=== PATIENT | male | born 1960 | race Caucasian/White ===

== ENCOUNTER 2024-10-17 10:24 | Outpatient (OUT) | payer OTHER, SELFPAY ==
--- OUTSIDE RECORDS SUMMARY | 2024-10-09 23:59 | XMS_ITS | Continuity of Care Document ---
Author Organization [facility] Address [address] [place] [address] Care Team Providers Care Glass Bulb Silverer Name Role Phone ISAIAS ESPOSITO Primary Care Physician Unav ailable Encounter [id number] [id number] Date(s): 10/09/24 - 10/09/24 [facility] [address] [place] [address]- Encounter Diagnosis Elevated PSA(Discharge Diagnosis) - 10/09/24 BPH without urinary obstruction(Discharge Diagnosis) - 10/09/24 Discharge Disposition: Home (Routine DC) Attending Physician: Vlad MALDONADO MD Encounter Type: Clinic Allergies, Adverse Reactions, Alerts Substance Criticality Severity Reaction Reaction Severity Status penicillin High criticality Moderate Ac tive Assessment and Plan Diagnostic Tests Pending * PSA Total 10/09/24 Immunizations Given and Recorded Vaccine Date Status Refusal Reason SARS-CoV-2 (COVID-19) mRNA-1273 vaccine 05/13/21 R ecorded SARS-CoV-2 (COVID-19) mRNA-1273 vaccine 06/27/20 R ecorded SARS-CoV-2 (COVID-19) mRNA-1273 vaccine 05/30/20 R ecorded diphtheria/pertussis, acel/tetanus adult 08/30/17 Recorded influenza virus vaccine, inactivated 05/17/15 Romeo rded influenza, whole 01/16/11 Recorded Medications amLODIPine 5 mg Tab 5 mg = 1 tab(s), Refills(s) 0 Start Date: 10/09/24 Status: Ordered Repeat number: 1 atorvastatin 20 mg Tab 20 mg = 1 tab(s), Refills(s) 0 Start Date: 10/09/24 Status: Ordered Repeat number: 1 Cipro 500 mg Tab 500 mg = 1 tab(s), Oral, BID, start 3 days prior to procedure, X 7 day(s), # 14 tab(s), Refills(s) 0, Pharmacy: [id number], 170, cm, 10/09/24 14:12:00 EDT, Height/Length Dosing, 80.5, kg, 10/09/24 14:12:00 EDT, Weight Dosing Start Date: 10/09/24 Stop Date: 10/16/24 Status: Ordered Quantity: 14.0 Unit: tab(s) Repeat number: 1 hydrochlorothiazide 25 mg Tab 25 mg = 1 tab(s), Refills(s) 0 Start Date: 10/09/24 Status: Ordered Repeat number: 1 lisinopril 40 mg Tab 40 mg = 1 tab(s), Refills(s) 0 Start Date: 10/09/24 Status: Ordered Repeat number: 1 omeprazole 20 mg Cap-DR 20 mg = 1 cap(s), Refills(s) 0 Start Date: 10/09/24 Status: Ordered Repeat number: 1 Problem List Condition Confirmation Course Effective Dates Status Health Status Informant BPH without urinary obstruction Confirmed Active Essential hypertension Confirmed 08/22/20 Active Gastroesophageal reflux disease without esophagitis Confirmed 04/23/21 Active Hypercholesterolemia Confirmed 08/22/20 Active Hypercholesterolemia Confirmed Active Hypertension Confirmed Active Prostate specific antigen above reference range Confirmed 09/14/24 Active Elevated PSA Confirmed Active Social History Social History Type Response Smoking Status Former smoker, quit more than 30 days ago;Former smokeless tobacco user, quit more than 30 days ago; Started at age: 50.0; Stopped at age: 60; entered on: 10/09/24 Sex Male Sex Representation Male (finding) Hospital Discharge Instructions Patient Education 10/09/2024 15:08:20 Transrectal Ultrasound-Guided Prostate Biopsy Transrectal Ultrasound-Guided Prostate Biopsy A transrectal ultrasound-guided prostate biopsy is a procedure to remove samples of prostate tissuefor testing. The prostate is a walnut-sized gland that is located below the bladder and in front ofthe rectum. During this procedure, a small device (probe) is lubricated and put inside the rectum. The probe sends out sound waves that make a picture of the prostate and surrounding tissues (transrectal ultrasound). The images are used to help guide the process of removing the samples. The samplesare taken to a lab to be checked for prostate cancer. This procedure is usually done to evaluate the prostate gland of men who have raised (elevated) levels of prostate-specific antigen (PSA), which can be a sign of prostate cancer or prostate enlargement related to aging (benign prostatic hyperplasia, or BPH). Tell a health care provider about: ??? Any allergies you have. ??? All medicines you are taking, including vitamins, herbs, eye drops, creams, and xskv-jxr-rbwhrhz medicines. ??? Any problems you or family members have had with anesthetic medicines. ??? Any bleeding problems you have. ??? Any surgeries you have had. ??? Any medical conditions you have. ??? Any prostate infections you have had. What are the risks? Generally, this is a safe procedure. However, problems may occur, including: ??? Prostate infection. ??? Bleeding from the rectum. ??? Blood in the urine. ??? Allergic reactions to medicines. ??? Damage to surrounding structures such as blood vessels, organs, or muscles. ??? Difficulty passing urine. ??? Nerve damage. This is usually temporary. What happens before the procedure? Medicines Ask your health care provider about: ??? Changing or stopping your regular medicines. This is especially important if you are taking diabetes medicines or blood thinners. ??? Taking medicines such as aspirin and ibuprofen. These medicines can thin your blood. Do not take these medicines unless your health care provider tells you to take them. ??? Taking jpvt-qqe-hvmpuoo medicines, vitamins, herbs, and supplements. General instructions ??? Follow instructions from your health care provider about eating and drinking. In most instances, you will not need to stop eating and drinking completely before the procedure. ??? You will be given an enema. During an enema, a liquid is injected into your rectum to clear outwaste. ??? You may have a blood or urine sample taken. ??? Ask your health care provider what steps will be taken to help prevent infection. These steps may include: ??? Washing skin with a germ-killing soap. ??? Taking antibiotic medicine. ??? If you will be going home right after the procedure, plan to have a responsible adult: ??? Take you home from the hospital or clinic. You will not be allowed to drive. ??? Care for you for the time you are told. What happens during the procedure? An IV will be inserted into one of your veins. ??? You will be given one or both of the following: ??? A medicine to help you relax (sedative). ??? A medicine to numb the area (local anesthetic). ??? You will be placed on your left side, and your knees will be bent toward your chest. ??? A probe with lubricated gel will be placed into your rectum, and images will be taken of your prostate and surrounding structures. ??? Numbing medicine will be injected into your prostate. ??? A biopsy needle will be inserted through your rectum or perineum and guided to your prostate using the ultrasound images. ??? Prostate tissue samples will be removed, and the needle and probe will then be removed. ??? The biopsy samples will be sent to a lab to be tested. The procedure may vary among health care providers and hospitals. What happens after the procedure? Your blood pressure, heart rate, breathing rate, and blood oxygen level will be monitored untilyou leave the hospital or clinic. ??? You may have some discomfort in the rectal area. You will be given pain medicine as needed. ??? If you were given a sedative during the procedure, it can affect you for several hours. Do not drive or operate machinery until your health care provider says that it is safe. ??? It is up to you to get the results of your procedure. Ask your health care provider, or the department that is doing the procedure, when your results will be ready. ??? Keep all follow-up visits. This is important. Summary ??? A transrectal ultrasound-guided biopsy removes samples of tissue from your prostate using ultrasound-guided sound waves to help guide the process. ??? This procedure is usually done to evaluate the prostate gland of men who have raised (elevated)levels of prostate-specific antigen (PSA), which can be a sign of prostate cancer or prostate enlargement related to aging. ??? After your procedure, you may feel some discomfort in the rectal area. ??? Plan to have a responsible adult take you home from the hospital or clinic, and follow up with your health care provider for your results. This information is not intended to replace advice given to you by your health care provider. Make sure you discuss any questions you have with your health care provider. Document Revised: 08/18/2021 Document Reviewed: 08/18/2021 [employer] Patient Education ?? 2023 [employer] 10/09/2024 15:00:33 Prostate Cancer Screening Prostate Cancer Screening Prostate cancer screening is testing that is done to check for the presence of prostate cancer in men. The prostate gland is a walnut-sized gland that is located below the bladder and in front of therectum in males. The function of the prostate is to add fluid to semen during ejaculation. Prostatecancer is one of the most common types of cancer in men. Who should have prostate cancer screening? Screening recommendations vary based on age and other risk factors, as well as between the professional organizations who make the recommendations. In general, screening is recommended if: ??? You are age 50 to 70 and have an average risk for prostate cancer. You should talk with your health care provider about your need for screening and how often screening should be done. Because most prostate cancers are slow growing and will not cause , screening in this age group is generally reserved for men who have a 10- to 15-year life expectancy. ??? You are younger than age 50, and you have these risk factors: ??? Having a father, brother, or uncle who has been diagnosed with prostate cancer. The risk is higher if your family member's cancer occurred at an early age or if you have multiple family members with prostate cancer at an early age. ??? Being a male who is Black or is of Isai or sub-Saharan descent. In general, screening is not recommended if: ??? You are younger than age 40. ??? You are between the ages of 40 and 49 and you have no risk factors. ??? You are 70 years of age or older. At this age, the risks that screening can cause are greater than the benefits that it may provide. If you are at high risk for prostate cancer, your health care provider may recommend that you have screenings more often or that you start screening at a younger age. How is screening for prostate cancer done? The recommended prostate cancer screening test is a blood test called the prostate-specific antigen(PSA) test. PSA is a protein that is made in the prostate. As you age, your prostate naturally produces more PSA. Abnormally high PSA levels may be caused by: ??? Prostate cancer. ??? An enlarged prostate that is not caused by cancer (benign prostatic hyperplasia, or BPH). This condition is very common in older men. ??? A prostate gland infection (prostatitis) or urinary tract infection. ??? Certain medicines such as male hormones (like testosterone) or other medicines that raise testosterone levels. A rectal exam may be done as part of prostate cancer screening to help provide information about the size of your prostate gland. When a rectal exam is performed, it should be done after the PSA level is drawn to avoid any effect on the results. Depending on the PSA results, you may need more tests, such as: ??? A physical exam to check the size of your prostate gland, if not done as part of screening. ??? Blood and imaging tests. ??? A procedure to remove tissue samples from your prostate gland for testing (biopsy). This is theonly way to know for certain if you have prostate cancer. What are the benefits of prostate cancer screening? Screening can help to identify cancer at an early stage, before symptoms start and when the cancer can be treated more easily. ??? There is a small chance that screening may lower your risk of dying from prostate cancer. The chance is small because prostate cancer is a slow-growing cancer, and most men with prostate cancer from a different cause. What are the risks of prostate cancer screening? The main risk of prostate cancer screening is diagnosing and treating prostate cancer that would never have caused any symptoms or problems. This is called overdiagnosisand overtreatment. PSA screening cannot tell you if your PSA is high due to cancer or a different cause. A prostate biopsy is the only procedure to diagnose prostate cancer. Even the results of a biopsy may not tell you if your cancer needs to be treated. Slow-growing prostate cancer may not need any treatment other than monitoring, so diagnosing and treating it may cause unnecessary stress or other side effects. Questions to ask your health care provider ??? When should I start prostate cancer screening? What is my risk for prostate cancer? How often do I need screening? What type of screening tests do I need? How do I get my test results? What do my results mean? Do I need treatment? Where to find more information ??? The [place] [employer]: www.cancer.org ??? [place] [employer] Association: www.auanet.org Contact a health care provider if: ??? You have difficulty urinating. ??? You have pain when you urinate or ejaculate. ??? You have blood in your urine or semen. ??? You have pain in your back or in the area of your prostate. Summary ??? Prostate cancer is a common type of cancer in men. The prostate gland is located below the bladder and in front of the rectum. This gland adds fluid to semen during ejaculation. ??? Prostate cancer screening may identify cancer at an early stage, when the cancer can be treatedmore easily and is less likely to have spread to other areas of the body. ??? The prostate-specific antigen (PSA) test is the recommended screening test for prostate cancer,but it has associated risks. ??? Discuss the risks and benefits of prostate cancer screening with your health care provider. If you are age 70 or older, the risks that screening can cause are greater than the benefits that it may provide. This information is not intended to replace advice given to you by your health care provider. Make sure you discuss any questions you have with your health care provider. Document Revised: 08/18/2021 Document Reviewed: 08/18/2021 [employer] Patient Education ?? 2023 [employer] Follow Up Care 09/19/2024 10:27:13 With:ERICA VICENTE, Vlad R, URL Address: [facility] [address] , [place] [address]- [phone] When: Unknown Comments:sched TRUS/bx Patient Care team information Care Team Personnel Name: ISAIAS ESPOSITO CNP Member Role: Primary Care Physician Address: [address] [address] Care Team Related Persons Name: TWIN GARRETT Insurance Providers Guarantor name: Health Plan Information #: 1 Payer: NA Payer Identifier: [id number] Member Number: [id number] Group Number: [id number] Subscriber Identifier: [id number] Relationship to Subscriber: Self Coverage Type: PRIVATE HEALTH INSURANCE Coverage Verification Date: 24 Telecom: LUL Address: NA
--- OUTSIDE RECORDS SUMMARY | 2024-10-09 23:59 | XMS_ITS | Continuity of Care Document ---
Author Organization [facility] Address Unknown Care Team Providers Care Underwriter Name Role Phone ISAIAS ESPOSITO Primary Care Physician Unav ailable Encounter [id number] [id number] Date(s): 10/09/24 - 10/09/[address] [address] Discharge Disposition: Home (Routine DC) Attending Physician: Vlad MALDONADO MD Admitting Physician: Vlad MALDONADO MD Encounter Type: Lab Drop off Allergies, Adverse Reactions, Alerts Substance Criticality Severity [...] day(s), # 14 tab(s), Refills(s) 0, Pharmacy: [id number], 170, cm, 10/09/24 14:12:00 EDT, [...] 10/09/24 Sex Male Sex Representation Male (finding) Patient Care team information Care Team Personnel Name: ISAIAS ESPOSITO CNP Member Role: Primary Care Physician Address: [address] Care Team Related Persons Name: TWIN GARRETT Insurance Providers Guarantor name: Health Plan Information #: 1 Payer: NA Payer Identifier: [id number] Member Number: [id number] Group Number: [id number] Subscriber Identifier: [id number] Relationship to Subscriber: Self Coverage Type: PRIVATE HEALTH INSURANCE Coverage Verification Date: NA Telecom: NA Address:
--- OUTSIDE RECORDS SUMMARY | 2024-10-17 10:26 | XMS_ITS | Encounter Summary ---
Author Organization [facility] tem Address [id number] [address] [place] [address] Care Team Providers Care Senior Test Engineer Name Role Phone Natalie Lopez WORK COUNSELOR-GENERAL PEDIATRICIAN Primary Care Provi edwin Encounter Details Date Type Department Care Team (Late st Contact Info) Description 09/03/2020 Telephone [facility] [address] [place] [address] [place] [address] Duke Kohler CMA Social History Tobacco Use Types Packs/Day Years Used Date Smoking Tobacco: Never Smokeless Tobacco: Former Snuff Alcohol Use Standard Drinks/Week Comments Yes 0 (1 standard drink = 0.6 oz pur e alcohol) occasional PHQ-2 Answer Date Recorded Total Score 0 07/22/2020 Childcare Answer Date Recorded Childcare Unknown 08/08/2018 Employment Answer Date Recorded Employment Unknown 08/08/2018 Purpose - Life Answer Date Recorded Purpose and direction in life Unknown Sex and Gender Information Value Date Recorded Sex Assigned at Not on file Legal Sex Male 12:00 PM EDT Gender Identity Not on file Sexual Orientation Not on file COVID-19 Exposure Response Date Recorded In the last month, have you been in contact with someone who was confirmed or suspected to have Coronavirus / COVID-19? No / Unsure 08/22/2020 3:24 PM EDT documented as of this encounter Miscellaneous Notes * Telephone Encounter - Duke Hannah CMA - 09/03/2020 10:41 AM EDT Jason called to express his gratitude to both of you for being so wonderful and helping him and Carley yesterday. He wanted me to thank both of you for him. documented in this encounter Plan of Treatment Upcoming Encounters Date Type Department Care Team (Late st Contact Info) Description 10/18/2024 2:40 PM EDT Office Visit [facility] [address] [place] [phone] Natalie Lopez, GHADA-GENERAL PEDIATRICIAN [address] [facility] [address], [place] [address] documented as of this encounter Visit Diagnoses Not on filedocumented in this encounter Additional Health Concerns Assessment Noted Time PHQ-9 Depression Total Score: 0 07/23/19 9:48 AM EDT documented as of this encounter Care Teams Senior Test Engineer Relationship Specialty Start Date End Date Natalie Lopez, WORK COUNSELOR-GENERAL PEDIATRICIAN [address] [facility] [address], [place] [address] PCP - General Family Medicine 07/22/20 documented as of this encounter
--- OUTSIDE RECORDS SUMMARY | 2024-10-17 10:26 | XMS_ITS | Encounter Summary ---
Author Organization [facility] tem Address [id number] [address] [place] [address] Care Team Providers Care Director Of Financial Reporting Name Role Phone Natalie Lopez HORSE TREKKING GUIDE-APPLICATION INTEGRATION ARCHITECT Primary Care Provi edwin Encounter Details Date Type Department Care Team (Latest Contact Info) Description 09/14/2024 Results Follow-Up [facility] [address] [place] [address] [place] [address] Suzi Reid CMA CBC auto differential, Comprehensive metabolic panel, Prostatic specific antigen screen, Additional followed-up results: 2 Social History Tobacco Use Types Packs/Day Years Used Date Smoking Tobacco: Never Smokeless Tobacco: Current Snuff Alcohol Use Standard Drinks/Week Comments Yes 0 (1 standard drink = 0.6 oz pur e alcohol) occasional PHQ-2 Answer Date Recorded Total Score 0 09/11/2024 Childcare Answer Date Recorded Childcare Unknown 08/08/2018 Employment Answer Date Recorded Employment Unknown 08/08/2018 Hunger Screening Answer Date Recorded Within the past 12 months we worried whether our food would run out before we got money to buy more. Never True 09/11/2024 Within the past 12 months th e food we bought just didn't last and we didn't have money to get more. Never True 09/11/2024 Purpose - Life Answer Date Recorded Purpose and direction in life Unknown Sex and Gender Information Value Date Recorded Sex Assigned at Not on file Legal Sex Male 12:00 PM EDT Gender Identity Not on file Sexual Orientation Not on file documented as of this encounter Miscellaneous Notes * Telephone Encounter - Suzi Reid CMA - 09/14/2024 12:44 PM EDT ----- Message from HEATHER Freeman sent at 09/12/2024 6:40 PM EDT ----- Psa quite high, needs to see urology. Ask if ok with putting in referral. Also b 12 low recommend b12 2500 mcg sl daily ----- Message ----- From: Lab, Background User Sent: 09/11/2024 6:07 PM EDT To: HEATHER Vitale * Telephone Encounter - Suzi Reid CMA - 09/14/2024 12:44 PM EDT Called and informed patient of results. Verbalized understanding with patient. Patient is wantign referral placed to urology. documented in this encounter Plan of Treatment Upcoming Encounters Date Type Department Care Team (Late st Contact Info) Description 10/18/2024 2:40 PM EDT Office Visit [facility] [address] [place] [phone] Natalie Lopez APRN-CNP [address] [facility] [address], [place], [place] [id number] documented as of this encounter Visit Diagnoses Not on filedocumented in this encounter Additional Health Concerns Assessment Noted Time PHQ-9 Depression Total Score: 0 09/12/19 25 3:04 PM EDT A Body Mass Index follow-up plan has been documented for the patient 09/11/2024 3:38 PM EDT documented as of this encounter Care Teams Director Of Financial Reporting Relationship Specialty Start Date End Date Natalie Lopez APRN-CNP [address], [place] [address] PCP - General Family Medicine 07/22/20 documented as of this encounter
--- OUTSIDE RECORDS SUMMARY | 2024-10-17 10:26 | XMS_ITS | Encounter Summary ---
Author Organization [employer] tem Address [id number] [address] [place] [address] Care Team Providers Care Grief Counsellor Name Role Phone Natalie Lopez TELESALES AGENT[facility] Primary Care Provi edwin Encounter Details Date Type Department Care Team (Late Contact Info) Description 10/12/2024 Orders Only [facility] [address] [place] [address] External, Scanning Provider Social History Tobacco Use Types Packs/Day Years [...] on file documented as of this encounter Plan of Treatment Upcoming Encounters Date Type Department Care Team (Late Contact Info) Description 10/18/2024 2:40 PM EDT Office Visit [facility] [address] [place] [address] [place] [address] Natalie Lopez, GHADA-CUSTOMER ACCOUNT TECHNICIAN [address], [place] [address] documented as of this encounter Procedures Procedure Name Priority Date/Time Associated Diagnosis Comments CO PSA, TOTAL SCREENING Routine 10/09/2024 documented in this encounter Results * (ABNORMAL) CO PSA, TOTAL SCREENING (10/09/2024) Psa 12.0(A) 0.1 - 3.5 MANUALLY TRANSCRIBED RESULTS Comment:Ordering provider: Jesus Elliott MD 10/09/2024 us Scanning Provider External CO PROFESSIONAL SERVI JAMES Edited Result - Final MANUALLY TRANSCRIBED RESULTS documented in this encounter Visit Diagnoses Not on filedocumented in this encounter Additional Health Concerns Assessment Noted Time PHQ-9 Depression Total Score: 0 09/12/19 25 3:04 PM EDT A Body Mass Index follow-up plan has been documented for the patient 09/11/2024 3:38 PM EDT documented as of this encounter Care Teams Grief Counsellor Relationship Specialty Start Date End Date Natalie Lopez, GHADA-NOLAN [address] [place] [address] PCP - General Family Medicine 07/22/20 documented as of this encounter
--- OUTSIDE RECORDS SUMMARY | 2024-10-17 10:26 | XMS_ITS | Encounter Summary ---
Author Organization [employer] [facility] tem Address [id number] [address] [place] [address] Care Team Providers Care Institutional Research Director Name Role Phone Natalie Lopez PAID SEARCH MARKETING ANALYST-PEDIATRIC AUDIOLOGIST Primary Care [facility] Encounter Details Date Type Department Care Team (Late st Contact Info) Description 07/29/2020 [facility] [address] [place] [address] [address] [place] [address] Duke Kohler CMA Social History Tobacco Use Types Packs/Day Years Used Date Smoking Tobacco: Never Smokeless Tobacco: Former Snuff Alcohol Use Standard Drinks/Week Comments Yes 0 (1 standard drink = 0.6 oz pur e alcohol) PHQ-2 Answer Date Recorded Total Score 0 [...] have Coronavirus / COVID-19? No / Unsure 07/22/2020 9:27 AM EDT documented as of this encounter Miscellaneous Notes * Telephone Encounter - Duke Hannah CMA - 07/29/2020 11:14 AM EDT Pt called and said when he saw you last, you mentioned there was a shoe place in [place] going out of business but they still measure feet. I forgot what the name of the place was, do you recall? * Telephone Encounter - HEATHER Wong - 07/29/2020 11:14 AM EDT [employer] [facility] on the [facility]. * Telephone Encounter - Duke Hannah CMA - 07/29/2020 11:14 AM EDT Informed pt, he verbalized understanding. documented in this encounter Plan of Treatment Upcoming Encounters Date Type Department Care Team (Late st Contact Info) Description 10/18/2024 2:40 PM EDT Office Visit [facility] [address] [place] [place] [phone] Natalie Lopez APRN-CNP [address], [place], [place] [phone] documented as of this encounter Visit Diagnoses Not on filedocumented in this encounter Additional Health Concerns Assessment Noted Time PHQ-9 Depression Total Score: 0 07/23/19 9:48 AM EDT documented as of this encounter Care Teams Institutional Research Director Relationship Specialty Start Date End Date Natalie Lopez APRN-CNP [address], [place] [address] PCP - General Family Medicine 07/22/20 documented as of this encounter
--- OUTSIDE RECORDS SUMMARY | 2024-10-17 10:26 | XMS_ITS | Encounter Summary ---
Author Organization [facility] [employer] tem Address [id number] [address] [place] [address] Care Team Providers Care Financial Business Analyst Name Role Phone Natalie Lopez ELECTRONICS TECHNOLOGY DEPARTMENT CHAIR-SAMPLE PATTERNMAKER Primary Care [facility] Encounter Details Date Type Department Care Team (Late st Contact Info) Description 07/21/2021 Refill [facility] [address] [place] [address] [address] [address] [place] [address] Megan Boss CMA Gastroesophageal reflux disease without esophagitis Social History Tobacco Use Types Packs/Day Years Used Date Smoking Tobacco: Never Smokeless Tobacco: Current Snuff Alcohol Use Standard Drinks/Week Comments Yes 0 (1 standard drink = 0.6 oz pur e alcohol) occasional PHQ-2 Answer Date Recorded Total Score 0 06/04/2021 Childcare Answer Date Recorded Childcare Unknown 08/08/2018 [...] encounter Miscellaneous Notes * Telephone Encounter - Megan Boss CMA - 07/21/2021 11:47 AM EDT Patient called stating he needs a refill on medication. He hasn't been taking it and has felt horrible. Would like to start it again. Please advise. documented in this encounter Plan of Treatment Upcoming Encounters Date Type Department Care Team (Late st Contact Info) Description 10/18/2024 2:40 PM EDT Office Visit [facility] [address] [place] [phone] Natalie Lopez APRN-CNP [address] [facility] [address], [place], [place] [phone] documented as of this encounter Visit Diagnoses Diagnosis Gastroesophageal reflux disease without esophagitis Esophageal reflux documented in this encounter Additional Health Concerns Assessment Noted Time PHQ-9 Depression Total Score: 0 06/05/19 22 3:19 PM EDT documented as of this encounter Care Teams Financial Business Analyst Relationship Specialty Start Date End Date Natalie Lopez APRN-CNP [address] [facility] [address], [place], [place] [phone] PCP - General Family Medicine 07/22/20 documented as of this encounter
--- OUTSIDE RECORDS SUMMARY | 2024-10-17 10:26 | XMS_ITS | Encounter Summary ---
Author Organization [facility] [employer] tem Address [id number] [address] [place] [address] Care Team Providers Care Underwriting Service Representative Name Role Phone Natalie Lopez INVESTMENT BANKING MANAGER-SALES SERVICE ROUTE MANAGER Primary Care [facility] Reason for Visit * Reason Comments Med Refill Encounter Details Date Type Department Care Team (Late st Contact Info) Description 10/12/2024 Refill [facility] [address] [place] [address] [place] [address] Aixa Hatch MD [address], [place] [address] Gastroesophageal reflux disease without esophagitis Social History [...] Office Visit [facility] [address] [place] [phone] Natalie Lopez APRN-CNP [address] [facility], [place] [address] documented as of this encounter Visit Diagnoses Diagnosis Gastroesophageal reflux disease without esophagitis Esophageal reflux documented in this encounter Additional Health Concerns Assessment Noted Time PHQ-9 Depression Total Score: 0 09/12/19 25 3:04 PM EDT A Body Mass Index follow-up plan has been documented for the patient 09/11/2024 3:38 PM EDT documented as of this encounter Care Teams Underwriting Service Representative Relationship Specialty Start Date End Date Natalie Lopez APRN-CNP [address], [place] [address] PCP - General Family Medicine 07/22/20 documented as of this encounter
--- OUTSIDE RECORDS SUMMARY | 2024-10-17 10:26 | XMS_ITS | Encounter Summary ---
Author Organization [facility] [employer] tem Address [id number] [address] [place] [address] Care Team Providers Care Carton Waxing Machine Operator Name Role Phone Natalie Lopez FEATHER TRIMMER-CANDY MAKER HELPER Primary Care [facility] Reason for Visit * Reason Comments Med Refill Encounter Details Date Type Department Care Team (Late st Contact Info) Description 09/30/2022 Refill [facility] [address] [facility] [place] [address] Aixa Hatch MD [address], [place] [address] Essential hypertension Social History Tobacco Use Types Packs/Day Years [...] got money to buy more. Never True 07/08/2022 Within the past 12 months th e food we bought just didn't last and we didn't have money to get more. Never True 07/08/2022 Purpose - Life Answer Date Recorded Purpose [...] Visit [facility] [address] [place] [phone] Natalie Lopez APRN-CNP [address] [facility] [address], [place], [place] [phone] documented as of this encounter Visit Diagnoses Diagnosis Essential hypertension Unspecified essential hypertension documented in this encounter Additional Health Concerns Assessment Noted Time PHQ-9 Depression Total Score: 0 06/05/19 22 3:19 PM EDT documented as of this encounter Care Teams Carton Waxing Machine Operator Relationship Specialty Start Date End Date Natalie Lopez, HEATHER [address] [facility] [address], [place], [place] [phone] PCP - General Family Medicine 07/22/20 documented as of this encounter
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
--- OUTSIDE RECORDS SUMMARY | 2024-10-17 10:26 | XMS_ITS | Encounter Summary ---
Author Organization [employer] s tem Address [id number] [address] [place] [address] Care Team Providers Care Data Visualization Developer Name Role Phone Natalie Lopez BULWARK CARPENTER-SHUTDOWN COORDINATOR Primary Care Provi edwin Reason for Visit * Reason Comments Med Refill Encounter Details Date Type Department Care Team (Late st Contact Info) Description 06/18/2022 Refill [facility] [address] [place] [address] Natalie Lopez, BULWARK CARPENTER-SHUTDOWN COORDINATOR [address] [place], [place] [address]e [facility] [address], [place] [address] Essential hypertension Social History Tobacco [...] Family Medicine [address] [place] [address] Natalie Lopez APRN-CNP [address] [facility] [address], [place] [address] documented as of this encounter Visit Diagnoses Diagnosis Essential hypertension Unspecified essential hypertension documented in this encounter Additional Health Concerns Assessment Noted Time PHQ-9 Depression Total Score: 0 06/05/19 22 3:19 PM EDT documented as of this encounter Care Teams Data Visualization Developer Relationship Specialty Start Date End Date Natalie Lopez APRN-CNP [address] [facility] [address], [place] [address] PCP - General Family Medicine 07/22/20 documented as of this encounter
--- OUTSIDE RECORDS SUMMARY | 2024-10-17 10:26 | XMS_ITS | Encounter Summary ---
Author Organization [employer] s tem Address [facility] [id number] [address] [place] [address] Care Team Providers Care Heavy Rail Train Operator Name Role Phone Natalie Lopez Primary Care Provi edwin Encounter Details Date Type Department Care Team (Late st Contact Info) Description 07/23/2020 [facility] [address] [place] [address] [place] [address] Duke Kohler CMA Social History [...] Telephone Encounter - Duke Hannah CMA - 07/23/2020 2:37 PM EDT ----- Message from HEATHER Wong sent at 07/23/2020 2:14 PM EDT ----- CMP normal; cholesterol slightly elevated and patient should concentrate on a low fat, low-sodium diet * Telephone Encounter - Duke Hannah CMA - 07/23/2020 2:37 PM EDT Informed pt of results, he verbalized understanding. documented in this encounter Plan of Treatment Upcoming Encounters Date Type Department Care Team (Late st Contact Info) Description 10/18/2024 2:40 PM EDT Office Visit [facility] [address] [place] [phone] Natalie Lopez, HEATHER [address] [facility] [address], [place], [place] [phone] documented as of this encounter Visit Diagnoses Not on filedocumented in this encounter Additional Health Concerns Assessment Noted Time PHQ-9 Depression Total Score: 0 07/23/19 21 9:48 AM EDT documented as of this encounter Care Teams Heavy Rail Train Operator Relationship Specialty Start Date End Date Natalie Lopez APRN-CNP [address] [facility] [address], [place], [place] [phone] PCP - General Family Medicine 07/22/20 documented as of this encounter
--- OUTSIDE RECORDS SUMMARY | 2024-10-17 10:27 | XMS_ITS | Encounter Summary ---
Author Organization [employer] s tem Address [facility]-[id number] [address] [place] [address] Care Team Providers Care State Comptroller Name Role Phone Natalie Lopez Primary Care Provi edwin Encounter Details Date Type Department Care Team (Late Contact Info) Description 10/19/2018 Telephone [facility] [address] [facility] [place] [address] Brooklynn Thakkar CMA Social History Tobacco Use Types Packs/Day Years Used Date Smoking Tobacco: Never Smokeless Tobacco: Current Snuff Alcohol Use Standard Drinks/Week Comments Yes 0 (1 standard drink = 0.6 oz pur e alcohol) Childcare Answer Date Recorded Childcare Unknown 08/08/2018 Employment Answer Date Recorded Employment Unknown 08/08/2018 Sex and Gender Information Value Date Recorded Sex Assigned at Not on file Legal Sex Male 12:00 PM EDT Gender Identity Not on file Sexual Orientation Not on file documented as of this encounter Plan of Treatment Upcoming Encounters Date Type Department Care Team ([facility] Contact Info) Description 10/18/2024 2:40 PM EDT Office Visit [facility] [address] [place] [address] Natalie Lopez APRN-CNP [address] [facility] [place] [address] documented as of this encounter Visit Diagnoses Not on filedocumented in this encounter Care Teams State Comptroller Relationship Specialty Start Date End Date Natalie Lopez APRN-CNP [address], [place] [address] PCP - General Family Medicine 07/22/20 documented as of this encounter
== END 2024-10-17 10:25 | disposition home or self-care (01) ==
LOC: PST 10:25
PROVIDERS: Visit Provider Urology
DX: Z01.818 Encounter for other preprocedural examination (principal); R97.20 Elevated prostate specific antigen [PSA]

== ENCOUNTER 2024-10-19 08:36 | Day surgery (SDC) | payer OTHER, SELFPAY ==
[2024-10-19 08:54] VITALS: BP 145/89; PULSE 85; TEMP 35.9; O2SAT 98
--- NOTE | 2024-10-19 08:58 | US_ITS ---
The [address] [address] Patient Name: NAVYA GARRETT MRN: [id number] date: 1960 Sex: M Assigned Patient Location: [facility] Current Patient Location: Accession/Order Number: [id number] Exam Date: 10/19/2024 10:09 Report Date: 10/19/2024 10:09 At the request of: DUANE MALDONADO MD Procedure: US prostate Ultrasound-guided prostate biopsy. FINDINGS: Ultrasound guided prostate biopsy performed as performed by the urology service. No radiologist was present at time of procedure. Prostate gland measures 4.7 x 3.9 x 3.1 cm for a prostate biopsy is 29.7 mL. Predicted PSA is 3.56. US/US prostate IMPRESSION: Ultrasound-guided prostate biopsy. Impression dictated by: Ronal Adam Jr., D.O. 10/19/2024 10:09 AM Dictation Location: [place] [address] Electronically authenticated by: [id number] Y Date: 10/19/2024 10:09
[2024-10-19] MEDS: GENTAMICIN SULFATE 80 MG/2 ML VIAL 120 MG IM (09:06)
[2024-10-19 09:31] VITALS: BP 132/82; PULSE 78; O2SAT 98
[2024-10-19] MEDS: LIDOCAINE 2% JELLY 20 ML UR (09:40)
[2024-10-19] MEDS: LIDOCAINE HCL 1% 100 MG/10 ML MDV INJ (09:46)
[2024-10-19 09:54] VITALS: BP 137/77; PULSE 87; O2SAT 97
--- NOTE | 2024-10-19 09:56 | P.URON_ITS ---
Urology Surgery Operative Note Operative Note Procedure Date: 10/19/24 Time Out Performed: yes Pre-op Diagnosis: Elevated PSA Post-op Diagnosis: same as pre-op Procedures performed: 1. Transrectal ultrasound of the prostate. 2. Prostate needle biopsies Anesthesia: local and other (baljinder- prostatic block) Primary Surgeon: Vlad Elliott Complications: None Estimated blood loss (mL): 10 Findings: Scattered calcifications adjacent to the urethra. Specimens: 8 biopsies from the left side and 8 biopsies from the right side Drains: None Indications for Procedures: This gentleman has an elevated PSA. The highest is 12. He has no sign of infection. His CORDELL is benign. He chose not to get an MRI of the prostate. He now presents for mapped out biopsies of the prostate. He has signed an informed consent after risks were explained. Some of these risks include bleeding, infection, urosepsis and anesthesia to name a few. Detailed description of Procedure: The patient was brought into the endoscopy suite and kept on the [facility] bed. He was rotated into the left lateral decubitus position. Timeout was done by all parties in the room. We all agreed upon the patient's identification and the planned procedures for this patient. I started by passing Betadine soaked stick sponges and swabbing his rectum twice. I then passed 2% lidocaine gel per rectum. The ultrasound probe was then passed per rectum. The prostate was scanned in the transverse and sagittal views. The volume was calculated to be around 30 g. There were no hypoechoic areas noted. Scattered calcifications were noted adjacent to the urethra. I then used 1% plain lidocaine and did a Baljinder prostatic block in the usual fashion. We then began taking biopsies of from the left base going towards the apex. I divided it up into 4 levels and from each level took 2 biopsies. Once the 8 biopsies from the left were subm itted we then did a similar maneuver on the right side. At the end of the procedure we had 16 satisfactory cores. The probe was removed. He was then discharged to home in good condition.
== END 2024-10-19 10:00 | disposition home or self-care (01) ==
LOC: SURGOUT 08:41
PROVIDERS: PCP Nurse Practitioner; Visit Provider Urology
PROC: (CPT 55700; principal; 2024-10-19 09:00)
DX: C61 Malignant neoplasm of prostate (principal); R97.20 Elevated prostate specific antigen [PSA]; I10 Essential (primary) hypertension; E78.00 Pure hypercholesterolemia, unspecified; K21.9 Gastro-esophageal reflux disease without esophagitis
CPT/HCPCS: 55700; 76872; J1580